=== PATIENT | male | born 1935 | race Caucasian/White ===

== ENCOUNTER 2018-02-06 16:03 | Emergency (ER) | payer OTHER ==
[~2018-02-06] VITALS: Ht 177.8 cm; Wt 81.7 kg
[2018-02-06] MEDS ORDERED: PRILOSEC 20 MG20 MG PO (16:18)
[2018-02-06] MEDS ORDERED: LISINOPRIL10 MG PO (16:19)
[2018-02-06] MEDS ORDERED: HYDROCHLOROTH12.5 M1 PO (16:19)
[2018-02-06 16:39] LABS: ABSOLUTE BASOPHILS 0.1 thou/uL (0.0-0.2); ABSOLUTE EOSINOPHILS 0.1 thou/uL (0.0-0.7); ABSOLUTE LYMPHOCYTES 1.6 thou/uL (0.8-5.3); ABSOLUTE MONOCYTES 1.1 thou/uL (0.0-1.2); ABSOLUTE NEUTROPHILS 6.7 thou/uL (1.6-8.1); BASOPHILS 0.6 %; HEMATOCRIT 39.8 % (42.0-52.0); HEMOGLOBIN 13.5 gm/dL (14.0-18.0); LYMPHOCYTES 16.4 %; MCH 31.1 pg (26.0-34.0); MCHC 33.8 g/dL (28.0-37.0); MONOCYTES 11.2 %; MPV 7.6 fl. (7.2-11.1); NUCLEATED RBCS 0 /100WBC; PLATELET COUNT* 216 thou/uL (150-400); POLYS 70.8 %; RBC 4.33 mil/uL (4.50-6.00); RDW-CV 15.3 % (10.5-14.5); WBC 9.5 thou/uL (4.0-11.0)
[2018-02-06 17:00] LABS: ANION GAP 7 mmol/L (7-16); BUN 22 mg/dL (7-18); CALCIUM 8.2 mg/dL (8.5-10.1); CHLORIDE 94 mmol/L (98-107); CO2 29 mmol/L (21-32); CREATININE 1.2 mg/dL (0.6-1.3); GLUCOSE 113 mg/dL (70-99); SODIUM 130 mmol/L (136-145)
[2018-02-06 17:02] LABS: PROTIME 10.7 Seconds (9.20-11.50)
[2018-02-06 17:24] LABS: ALBUMIN 3.6 g/dL (3.4-5.0); ALKALINE PHOSPHATASE 78 U/L (46-116); LIPASE 106 U/L (73-393); MAGNESIUM 1.8 mg/dL (1.8-2.4); NT-PRO BRAIN NAT PEPTIDE 63 pg/mL (<300); SGOT 14 U/L (15-37); SGPT 26 U/L (30-65); TOTAL BILIRUBIN 0.5 mg/dL (<0.1-1.0); TOTAL PROTEIN 6.1 g/dL (6.4-8.2); TROPONIN-I LEVEL <0.06 ng/mL (<0.06)
[2018-02-06 17:29] LABS: URINE BILIRUBIN NEGATIVE (Negative); URINE BLOOD NEGATIVE (Negative); URINE CLARITY CLEAR; URINE COLOR YELLOW; URINE GLUCOSE-RANDOM NEGATIVE (Negative); URINE KETONES NEGATIVE (Negative); URINE LEUKOCYTES-REFLEX NEGATIVE (Negative); URINE NITRITE-REFLEX NEGATIVE (Negative); URINE PROTEIN NEGATIVE (Negative); URINE SPECIFIC GRAVITY 1.015 (1.005-1.030); URINE UROBILINOGEN 0.2 E.U./dl (0.2-1.0)
[2018-02-06 17:45] VITALS: BP 151/66
--- NOTE | 2018-02-07 12:16 | EKG ---
[place] [address] ELECTROCARDIOGRAM REPORT Name: TOSHIA CALDERON Room: [facility]#: [id number] Admission: 02/06/18 Attend Phys: Discharge: 02/06/18 Date of : 31 Report #: [id number] THIS REPORT FOR: //name// [facility] ED Test Date: 2018-02-06 Test Time: 16:11:39 Pat Name: TOSHIA CALDERON Department: Room: Gender: M Classroom Coordinator: : 1935 Requested By: Tremaine Angeles Order Number: [id number] MD: Monroe Escoto Measurements Intervals [place] Rate: 85 P: 44 OR: 145 QRS: 15 QRSD: 93 T: 62 QT: 356 QTc: 424 Interpretive Statements Sinus rhythm Low voltage, extremity leads No previous ECG available for comparison Electronically Signed On 02-07-2018 12:16:02 POLE PEELER by Monroe Escoto [email or web address] <ELECTRONICALLY SIGNED> By: Monroe Escoto MD, [facility] 02/07/18 1216 1611 1611 Monroe Escoto MD, FACC /EPI
== END 2018-02-06 17:50 | disposition home or self-care (01) ==
LOC: M.ERS 16:03
PROVIDERS: Family Medicine
DX: R00.2 Palpitations (principal); K21.9 Gastro-esophageal reflux disease without esophagitis; I10 Essential (primary) hypertension; Z90.49 Acquired absence of other specified parts of digestive tract; Z88.8 Allergy status to other drugs, medicaments and biological substances

== ENCOUNTER 2018-06-02 01:17 | Inpatient (IN) | payer OTHER ==
[~2018-06-02] VITALS: Ht 177.8 cm; Wt 88.5 kg
[~2018-06-02 01:17] MED LIST: HYDROCHLOROTH12.5 M1 PO; LISINOPRIL10 MG PO; PRILOSEC 20 MG20 MG PO
[2018-06-02 01:26] VITALS: BP 162/63
[2018-06-02] MEDS ORDERED: OSELB75 PO (01:34)
[2018-06-02] MEDS ORDERED: SAMBUCOL (01:35)
[2018-06-02 02:00] LABS: ABSOLUTE LYMPHOCYTES 1.5 thou/uL (0.8-5.3); ABSOLUTE MONOCYTES 1.1 thou/uL (0.0-1.2); ABSOLUTE NEUTROPHILS 6.1 thou/uL (1.6-8.1); BASOPHILS 0.4 %; EOSINOPHILS 0.2 %; HEMATOCRIT 37.4 % (42.0-52.0); HEMOGLOBIN 12.5 gm/dL (14.0-18.0); LYMPHOCYTES 17.5 %; MCH 30.3 pg (26.0-34.0); MCHC 33.4 g/dL (28.0-37.0); MCV 90.7 fL (80.0-100.0); MONOCYTES 12.3 %; MPV 8.5 fl. (7.2-11.1); NUCLEATED RBCS 0 /100WBC; PLATELET COUNT* 202 thou/uL (150-400); POLYS 69.6 %; RBC 4.13 mil/uL (4.50-6.00); RDW-CV 13.5 % (10.5-14.5); WBC 8.8 thou/uL (4.0-11.0)
[2018-06-02 02:08] LABS: INR 1.1; PROTIME 11.4 Seconds (9.20-11.50)
[2018-06-02 02:13] LABS: ANION GAP 9 mmol/L (7-16); BUN 17 mg/dL (7-18); CALCIUM 8.1 mg/dL (8.5-10.1); CHLORIDE 90 mmol/L (98-107); CO2 29 mmol/L (21-32); CREATININE 1.1 mg/dL (0.6-1.3); GLUCOSE 137 mg/dL (70-99); POTASSIUM 3.3 mmol/L (3.5-5.1); SODIUM 128 mmol/L (136-145); TROPONIN-I LEVEL <0.06 ng/mL (<0.06)
[2018-06-02 02:15] LABS: ALBUMIN 3.5 g/dL (3.4-5.0); ALKALINE PHOSPHATASE 104 U/L (46-116); NT-PRO BRAIN NAT PEPTIDE 459 pg/mL (<300); SGOT 22 U/L (15-37); SGPT 20 U/L (30-65); TOTAL BILIRUBIN 0.9 mg/dL (<0.1-1.0); TOTAL PROTEIN 6.8 g/dL (6.4-8.2)
[2018-06-02 03:27] LABS: URINE BILIRUBIN NEGATIVE (Negative); URINE BLOOD 1+ (Negative); URINE CLARITY CLEAR; URINE COLOR YELLOW; URINE GLUCOSE-RANDOM NEGATIVE (Negative); URINE KETONES NEGATIVE (Negative); URINE LEUKOCYTES-REFLEX NEGATIVE (Negative); URINE NITRITE-REFLEX NEGATIVE (Negative); URINE PROTEIN NEGATIVE (Negative); URINE SPECIFIC GRAVITY <= 1.005 (1.005-1.030); URINE UROBILINOGEN 0.2 E.U./dl (0.2-1.0)
[2018-06-02 04:08] LABS: CASTS None Seen /LPF (None Seen); SQUAMOUS 0-3 Few /LPF (0-3)
[2018-06-02 04:09] LABS: BACTERIA-REFLEX >30 Many /HPF (None Seen); CRYSTALS None Seen /LPF (None Seen); URINE RBC 3-10 Few /HPF (0-2); URINE WBC-REFLEX >25 Many /HPF (0-5)
[2018-06-02 05:50] VITALS: BP 135/60
--- NOTE | 2018-06-02 16:45 | EKG ---
[place] [address] ELECTROCARDIOGRAM REPORT Name: TOSHIA CALDERON Room: [place] [address] ADM IN M.R.#: [id number] Admission: 06/02/18 Attend Phys: Cyrus Escamilla, Discharge: Date of : 31 Report #: [id number] THIS REPORT FOR: //name// [facility] ED Test Date: 2018-06-02 Test Time: 01:43:36 Pat Name: TOSHIA CALDERON Department: Room: [facility] Gender: M Anodiser: MR : 1935 Requested By: Cheryle Lees Order Number: [id number] MD: Teo Bruce Measurements Intervals [place] Rate: 65 P: 46 OR: 162 QRS: 37 QRSD: 106 T: 62 QT: 436 QTc: 454 Interpretive Statements Sinus rhythm Probable left atrial enlargement Low voltage, extremity leads Compared to ECG 02/06/2018 16:11:39 No significant changes Electronically Signed On 06-02-2018 16:44:57 CDT by Teo Bruce [email or web address] <ELECTRONICALLY SIGNED> By: Teo Bruce MD, [facility] 06/02/18 1644 0143 0143 Teo Bruce MD, FACC /EPI
--- NOTE | 2018-06-02 18:43 | NUR ---
REPORT GIVEN TO FLOOR, BED NOT CLEANED, WILL WAIT AT THIS TIME
[2018-06-02 19:18] VITALS: BP 124/53
[2018-06-02 21:23] VITALS: BP 125/62
[2018-06-03 04:07] LABS: ABSOLUTE LYMPHOCYTES 1.3 thou/uL (0.8-5.3); ABSOLUTE MONOCYTES 1.1 thou/uL (0.0-1.2); ABSOLUTE NEUTROPHILS 3.6 thou/uL (1.6-8.1); BASOPHILS 0.4 %; EOSINOPHILS 0.7 %; HEMATOCRIT 32.9 % (42.0-52.0); HEMOGLOBIN 11.2 gm/dL (14.0-18.0); MCH 30.9 pg (26.0-34.0); MCV 90.9 fL (80.0-100.0); MONOCYTES 18.4 %; MPV 8.4 fl. (7.2-11.1); NUCLEATED RBCS 0 /100WBC; PLATELET COUNT* 176 thou/uL (150-400); POLYS 59.5 %; RBC 3.62 mil/uL (4.50-6.00); RDW-CV 13.4 % (10.5-14.5); WBC 6.1 thou/uL (4.0-11.0)
[2018-06-03 04:19] LABS: CALCIUM 8.2 mg/dL (8.5-10.1); POTASSIUM 4.1 mmol/L (3.5-5.1)
--- NOTE | 2018-06-03 05:50 | NUR ---
PT ADMITTED TO UNIT. ADMISSION DOCUMENTED. PT ORIENTED TO ROOM, CALL LIGHT SHOWN, FALL AGREEMENT WENT OVER, PT STATED UNDERSTANDING. IV PATENT, FLUIDS INFUSING. PT HAD NO REPORTS OF PAIN THIS SHIFT. PT REFUSED ASSISTANCE TO BATHROOM STATING "I AM FINE". PT EDUCATED ON FALL PRECAUTIONS. SCD'S IN PLACE. WILL CONTINUE WITH PLAN OF CARE.
[2018-06-03 06:03] LABS: INFLUENZA B ANTIGEN None Detected (None Detect)
--- NOTE | 2018-06-03 07:29 | NUR ---
PTS DAUGHTER CALLED UP AND IS EXPRESSING CONCERNS ABOUT PATIENT GOING BACK HOME. SHE STATES THAT THERE IS NOT SOMEONE AT THE HOUSE TO HELP TAKE CARE OF HERE EVEN THOUGH THE PATIENT STATES THAT THERE IT. PTS DAUGHTER ALSO STATES THAT THEY HAVE TRIED TO SEND HER HOME WITH HOME HEALTH AND THEN SOON SHE GETS HOME SHE REFUSES HOME HEALTH. INFORMED ONCOMING NURSE.
[2018-06-03 08:00] VITALS: BP 126/69
[2018-06-03 16:00] VITALS: BP 145/58
--- NOTE | 2018-06-03 16:47 | NUR ---
PATIENT IS ALERT AND OREINTED TODAY VERY PLEASANT. UP AD DI IN ROOM, VITAL SIGNS STABLE ON ROOM AIR. NO COMPLAINTS OF PAIN TODAY. APPETITE IS GOOD. CALL LIGHT IS IN REACH WILL CONTINUE TO MONITOR.
[2018-06-03 20:10] VITALS: BP 150/63
[2018-06-04 04:06] LABS: HEMATOCRIT 32.2 % (42.0-52.0); MCH 30.9 pg (26.0-34.0); MCHC 34.2 g/dL (28.0-37.0); MCV 90.5 fL (80.0-100.0); MPV 8.4 fl. (7.2-11.1); RBC 3.56 mil/uL (4.50-6.00); RDW-CV 13.8 % (10.5-14.5); WBC 5.1 thou/uL (4.0-11.0)
[2018-06-04 04:18] LABS: CALCIUM 8.1 mg/dL (8.5-10.1); MAGNESIUM 2.1 mg/dL (1.8-2.4); POTASSIUM 3.8 mmol/L (3.5-5.1)
--- NOTE | 2018-06-04 05:50 | NUR ---
PT SLEPT ON AND OFF THIS SHIFT. ASSESSMENT DOCUMENTED. MEDS GIVEN PER E-MAY. IV PATENT. TYLENOL GIVEN FOR HEADACHE AND BODY PAIN WITH SOME RELIEF. PT EDUCATED ON IS. PRN BREATHING TX GIVEN THIS SHIFT D/T PT REPORTING DIFFICULTY BREATHING. WILL CONTINUE WITH PLAN OF CARE.
[2018-06-04] MEDS ORDERED: VENTOLIN HFA 1818 GM INH (09:40)
[2018-06-04] MEDS ORDERED: CHEST CONGESTI400 MG PO (09:40)
[2018-06-04] MEDS ORDERED: PREDNISONE 20 M20 M1 PO (09:40)
[2018-06-04] MEDS ORDERED: AZITHROMYCIN 2250 MG PO (09:40)
[2018-06-04] MEDS ORDERED: CEFDINIR300 MG PO (09:40)
[2018-06-04 09:55] VITALS: BP 150/63
--- NOTE | 2018-06-04 10:37 | NUR ---
ASSESSMENT COMPLETE. PT ALERT AND ORIENTED X4. PT REPORTS FEELING BETTER. PT GIVEN TAMIFLU AND PO ABX. PT GIVEN DC INSTRUCTIONS AND PRESCRIPTIONS. PT VERBALIZES UNDERSTANDING. PT REPORTS BODY ACHES, DENIES NEED FOR PAIN MEDICATIONS. DENIES N/V. TOLERATED BREAKFAST. IV DC'D WITHOUT COMPLICATIONS. MILK OF MAG GIVEN FOR CONSTIPATION REPORTED BY PATIENT. PT IS UP AD DI WITH STEADY GAIT. SEE ASSESSMENT AND VITALS FOR OTHER DETAILS. PT LEFT VIA WHEELCHAIR TO PERSONAL VEHICLE WITH SPOUSE. ALL BELONGINGS SENT WITH PATIENT.
[2018-06-04 10:43] VITALS: BP 150/63
== END 2018-06-04 10:43 | disposition home or self-care (01) | DRG 871 ==
LOC: M.ERS 01:17 → M.TBA-ER 03:18 → M.3W 19:24
PROVIDERS: Emergency Medicine; Internal Medicine; ADMIT Family Medicine
DX: A41.89 Other specified sepsis (principal); J11.00 Influenza due to unidentified influenza virus with unspecified type of pneumonia; J80 Acute respiratory distress syndrome; J18.0 Bronchopneumonia, unspecified organism; N39.0 Urinary tract infection, site not specified; E87.1 Hypo-osmolality and hyponatremia; I10 Essential (primary) hypertension; K21.9 Gastro-esophageal reflux disease without esophagitis; R91.1 Solitary pulmonary nodule; Z90.49 Acquired absence of other specified parts of digestive tract; Z88.8 Allergy status to other drugs, medicaments and biological substances; Z23 Encounter for immunization; Z79.899 Other long term (current) drug therapy

== ENCOUNTER → 2018-07-06 | Outpatient (CLI) | payer OTHER ==
[~2018-07-06] MED LIST changes: +AZITHROMYCIN 2250 MG PO; +CEFDINIR300 MG PO; +CHEST CONGESTI400 MG PO; +OSELB75 PO; +PREDNISONE 20 M20 M1 PO; +SAMBUCOL; +VENTOLIN HFA 1818 GM INH
== END ==
LOC: M.RAD 11:51
DX: R05 Cough (principal); J98.11 Atelectasis

== ENCOUNTER → 2018-07-13 | Outpatient (CLI) | payer OTHER | LOC: M.RAD 11:54 | DX: M50.322 Other cervical disc degeneration at C5-C6 level (principal) ==

== ENCOUNTER 2020-10-25 09:47 | Emergency (ER) | payer OTHER ==
[~2020-10-25] VITALS: Ht 177.8 cm; Wt 79.4 kg
[2020-10-25 10:47] LABS: ABSOLUTE NEUTROPHILS 4.8 thou/uL (1.6-8.1); HEMOGLOBIN 12.8 gm/dL (14.0-18.0)
[2020-10-25 10:49] LABS: ABSOLUTE BASOPHILS 0.1 thou/uL (0.0-0.2); ABSOLUTE EOSINOPHILS 0.1 thou/uL (0.0-0.7); ABSOLUTE LYMPHOCYTES 0.9 thou/uL (0.8-5.3); ABSOLUTE MONOCYTES 0.7 thou/uL (0.0-1.2); BASOPHILS 1.1 %; EOSINOPHILS 1.5 %; HEMATOCRIT 38.8 % (42.0-52.0); LYMPHOCYTES 13.3 %; MCH 30.3 pg (26.0-34.0); MCHC 32.9 g/dL (28.0-37.0); MONOCYTES 10.3 %; MPV 8.6 fl. (7.2-11.1); NUCLEATED RBCS 0 /100WBC; PLATELET COUNT* 139 thou/uL (150-400); POLYS 73.8 %; RBC 4.21 mil/uL (4.50-6.00); WBC 6.5 thou/uL (4.0-11.0)
[2020-10-25 10:54] LABS: ANION GAP 10 mmol/L (7-16); BUN 20 mg/dL (7-18); CALCIUM 8.5 mg/dL (8.5-10.1); CHLORIDE 99 mmol/L (98-107); CO2 25 mmol/L (21-32); CREATININE 1.1 mg/dL (0.6-1.3); GLUCOSE 126 mg/dL (70-99); POTASSIUM 3.9 mmol/L (3.5-5.1); SODIUM 134 mmol/L (136-145)
[2020-10-25 11:06] LABS: ALBUMIN 3.7 g/dL (3.4-5.0); ALKALINE PHOSPHATASE 118 U/L (46-116); SGOT 25 U/L (15-37); SGPT < 6 U/L (30-65); TOTAL BILIRUBIN 0.5 mg/dL (<0.1-1.0); TOTAL PROTEIN 6.8 g/dL (6.4-8.2)
[2020-10-25] MEDS ORDERED: XANAX 0.25 MG0.25 MG PO (11:48)
[2020-10-25 11:51] LABS: PLATELET ESTIMATE ADEQUATE
[2020-10-25 11:52] LABS: CLUMPED PLTS RARE
[2020-10-25 11:53] LABS: ANISOCYTOSIS 1+; LARGE PLATELETS RARE; POIKILOCYTOSIS 1+
[2020-10-25 12:03] VITALS: BP 148/70
--- NOTE | 2020-10-25 13:16 | EKG ---
[place] [address] ELECTROCARDIOGRAM REPORT Name: Juan CALDERON Room: [facility]#: [id number] Admission: 10/25/20 Attend Phys: Discharge: 10/25/20 Date of : 31 Date of Service: 10/25/20 1004 Report #: [id number] THIS REPORT FOR: //name// [facility] ED Test Date: 2020-10-25 Test Time: 10:04:40 Pat Name: Juan CALDERON Department: Room: Gender: Revenue Cycle Administrator: [facility] : 1935 Requested By: Elizabeth Hidalgo Order Number: [id number] MD: Shilo Franklin Measurements Intervals [place] Rate: 97 P: 46 MA: 193 QRS: 32 QRSD: 100 T: 61 QT: 363 QTc: 461 Interpretive Statements Sinus rhythm Probable left atrial enlargement Borderline low voltage, extremity leads Baseline wander in lead(s) I,III,aVL,V1 Compared to ECG 06/02/2018 01:43:36 No significant changes Electronically Signed On 10-25-2020 13:15:59 CDT by Shilo Franklin [email or web address] <ELECTRONICALLY SIGNED> By: Shilo Franklin MD, [facility] 10/25/20 1315 1004 1004 Shilo Franklin MD, [facility] /EPI
== END 2020-10-25 12:05 | disposition home or self-care (01) ==
LOC: M.ERS 09:47
PROVIDERS: Physician Assistant
DX: F41.9 Anxiety disorder, unspecified (principal); I10 Essential (primary) hypertension; K21.9 Gastro-esophageal reflux disease without esophagitis; Z88.6 Allergy status to analgesic agent; Z79.899 Other long term (current) drug therapy